=== PATIENT | female | born 1960 | race Caucasian/White ===

== ENCOUNTER → 2017-03-01 | Day surgery (SDC) | payer OTHER ==
[~2017-03-01] VITALS: Ht 175.3 cm; Wt 80.9 kg
[~2017-03-01] MED LIST: FLEXERIL10 MG PO; LIPITOR10 MG PO; LISINOPRIL-HCT1 EAC2 PO; PERCOCET 5-3251 EACH PO; PROTONIX40 MG PO; TESSALON PERLE100 MG PO
--- NOTE | ~2017-03-01 | OR ---
PATIENT'S NAME: JAMIE FLORES [facility] AGE: 56 Y [address] ROOM: [place] [id number] LOCATION: [facility] [place] ADMIT DATE: 03/01/2017 OR/Procedure Report DISCHARGE DATE: FAMILY PHYSICIAN: Ivania Packer PA-C ATTENDING PHYSICIAN: Scott Alejo SURGEON: Scott Alejo MD [employer]ORSE[employer] RIDING INSTRUCTOR: DATE OF PROCEDURE: 03/01/2017 PREOPERATIVE DIAGNOSES: Left L3-4 disk herniation. POSTOPERATIVE DIAGNOSIS: Left L3-4 disk extrusion. OPERATION PROPOSED AND PERFORMED: 1. Left L3-4 MED/minimally invasive microdiskectomy. 2. Fluoroscopy with interpretation by me. 3. Microscope. DESCRIPTION OF PROCEDURE: Under general anesthesia, the patient was positioned prone. The back was prepped and draped in the usual fashion. Next, a spinal needle was placed just one fingerbreadth from the midline directly opposite the L3-4 disk space. This was confirmed fluoroscopically. The position of the spinal needle was marked on the skin. Next, a vertical 2 cm incision was then carried out, centered on the spot. A K-wire was passed through this spot to rest on the inferior part of the lamina of L3 directly opposite the L3-4 disk space. Position was confirmed fluoroscopically. Next, muscle dilators were sequentially passed over the K-wire and each came to rest on the inferior part of the lamina of L3 directly opposite the L3-4 disk space and with each passage the position was confirmed fluoroscopically. Next, a tubular retractor was then passed over the muscle dilators and as previously came to rest on the inferior part of the lamina of L3 directly centered on the L3-4 disc space. After confirming this position fluoroscopically, the tubular retractor was connected to the flexible arm over the flexible arm retractor and the flexible arm was tightened. The muscle dilators and K-wires were removed, position was again reconfirmed fluoroscopically. Next, the C-arm was removed, the microscope was brought in with the aid of the microscope. We removed the soft tissue from the inferior part of the lamina of L3, drilled of the inferior part of the lamina of L3. Next, we excised the yellow ligament, got us to the epidural space, we removed enough bone laterally, so we were lateral to the dura and the epidural fat was cauterized with bipolar cautery. We were then able to identify the L4 nerve root, which we then moved and directly underneath that was definitely herniating disk. The nerve root retractor was then used to retract the nerve root and retracted medially. That was exposing the herniating disk. An incision was made in the annulus and after we made an incision in the anulus, we were able to shave the PATIENT'S NAME: JAMIE FLORES [facility] AGE: 56 Y [address] ROOM: [place], [place] [id number] LOCATION: [facility] [place] ADMIT DATE: 03/01/2017 OR/Procedure Report DISCHARGE DATE: FAMILY PHYSICIAN: Ivania Packer PA-C ATTENDING PHYSICIAN: Scott Alejo herniating disk off. Next thing we did was to push down the disk space using the nerve root retractor and this did push out the small extruded fragments of disk material, which we were able to remove. After that was done, the wound was thoroughly irrigated with bacitracin irrigation, went to the disk space to remove any loose fragments of disk material, and after that was done, we removed the nerve root retractor, used a nerve hook to go anterior to the nerve root retractor, twirled it around to make sure there was no free fragment of disk material that we had left behind and there was none. The wound was then thoroughly irrigated with bacitracin irrigation. The suction was put in the disk space to remove any loose fragments of disk material and put some patties, tamponade the vessels, waited for 5 minutes, and removed the patties and with that weight, there was no bleeding. The wound was then closed in layers, first the fascia, subcuticular stitch, and Steri-Strips were then used to bring the skin edges together. I should point out that after we had retracted the nerve root and dura medially, we made an incision in the anulus. The patient tolerated the procedure well and was taken to the outpatient waiting area. MD CONNOR SWAIN/francisco /[id number] d: 03/01/17 1707 t: 03/03/17 1515, OPERATIVE SUMMARY
== END | disposition disaster alternative care site (69) ==
LOC: GPOC 02-10 14:00 → GSDC 02-15 07:00
PROC: 01NB0ZZ Release Lumbar Nerve, Open Approach (ICD-10-PCS; principal; 2017-03-01)
PROC: 0SB20ZZ Excision of Lumbar Vertebral Disc, Open Approach (ICD-10-PCS; principal; 2017-03-01)
DX: M51.26 Other intervertebral disc displacement, lumbar region (principal); E78.5 Hyperlipidemia, unspecified; I10 Essential (primary) hypertension
CPT/HCPCS: J0690; J1100; J2001; J2405; J7120

== ENCOUNTER → 2017-03-25 | Outpatient (CLI) | payer OTHER | END | disposition disaster alternative care site (69) | LOC: GKIC 10:06 | DX: M51.26 Other intervertebral disc displacement, lumbar region (principal); Z98.890 Other specified postprocedural states ==